=== PATIENT | female | born 1995 ===

== ENCOUNTER 2018-01-14 15:00 | Inpatient (IN) | payer OTHER ==
[~2018-01-14] VITALS: Ht 160 cm; Wt 68.0 kg
[2018-01-22] MEDS ORDERED: PRENATAL 19 TA1 EACH PO (09:54)
== END 2018-01-24 11:50 | disposition home or self-care (01) | DRG 775 ==
LOC: OB/GYN 01-22 07:09 → LDR 01-22 07:09 → OB/GYN 01-22 16:27
PROC: 10E0XZZ Delivery of Products of Conception, External Approach (ICD-10-PCS; principal; 2018-01-22)
PROC: 3E033VJ Introduction of Other Hormone into Peripheral Vein, Percutaneous Approach (ICD-10-PCS; 2018-01-22)
PROC: 4A1HXCZ Monitoring of Products of Conception, Cardiac Rate, External Approach (ICD-10-PCS; 2018-01-22)
PROC: 4A033R1 Measurement of Arterial Saturation, Peripheral, Percutaneous Approach (ICD-10-PCS; 2018-01-22)
DX: O69.81X0 Labor and delivery complicated by cord around neck, without compression, not applicable or unspecified (principal); O36.5930 Maternal care for other known or suspected poor fetal growth, third trimester, not applicable or unspecified; Z3A.39 39 weeks gestation of pregnancy; Z37.0 Single live birth